=== PATIENT | male | born 1975 | race Two or more races ===

== ENCOUNTER 2024-05-29 21:06 | Emergency (ER) | payer MEDICAID, SELFPAY ==
[2024-05-29 21:08] VITALS: BMI 28.8
[2024-05-29 21:23] VITALS: BP 142/87; PULSE 73; RESP 18; TEMP 37; O2SAT 96
--- NOTE | 2024-05-29 21:37 | PD.EDEAR ---
ED Ear RME/HPI General Chief complaint: Ear Stated complaint: EARS RINGING X2-3 YEARS AND UNABLE TO SLEEP Time Seen by Provider: 05/29/24 21:13 Arrival date/time: 05/29/24 21:06 This is a 48-year-old male that comes in with complaints of tinnitus for the past 2 to 3 years. Patient patient states he is never seen his primary provider for this problem. Patient denies any ear pain. Tinnitus is not associated with any headaches dizziness or any other symptoms. Patient states he has been going under a lot of stress recently. Patient reports that his son is doing drugs and lives under a bridge currently. Per patient father he is trying to get his son help and because of this he has had trouble sleeping at night. Explained to patient at length that he needs to speak to his primary provider about this problem. Related Data Previous Rx's ?Medication ?Instructions ?Recorded hydroxyzine HCl 25 mg tablet 25 mg PO .qhs PRN anxiety #10 tabs 05/29/24 Allergies Allergy/AdvReac Type Severity Reaction Status Date / Time No Known Allergies Allergy Verified 09/17/23 19:46 Review of Systems Review of Systems Systems Reviewed: All systems reviewed, normal except as documented Past Medical History Past Medical History Comments PMH COMMENT: denies ED Exam General General appearance: Present alert and in no apparent distress Head Head exam: Present atraumatic Eye Eye exam: Present normal appearance, PERRL and EOMI ENT ENT exam: Present normal exam, normal oropharynx and mucous membranes moist Neck Neck exam: Present normal inspection, full ROM and trachea midline Chest Chest inspection: Present normal inspection and symmetric chest wall rise Respiratory Respiratory exam: Present normal lung sounds bilaterally Cardiovascular Cardiovascular exam: Present regular rate, normal rhythm and normal heart sounds Abdominal Exam Abdominal exam: Present soft Extremities Exam Extremities exam: Present normal inspection and full ROM Back Exam Back exam: Present normal inspection and full ROM Neurological Exam Neurological exam: Present alert, oriented X3 and CN II-XII intact Psychiatric Psychiatric exam: Present normal affect and normal mood Skin Skin exam: Present warm, dry, intact and normal color Course Quality Measures none Orders Category Date Time Status LORazepam [Ativan] Med 05/29/24 21:38 Discontinued 1 mg PO X1 ONE Vital Signs Vital signs: Vital Signs Temperature 98.6 F 05/29/24 21:23 Pulse Rate 73 05/29/24 21:23 Respiratory Rate 18 05/29/24 21:23 Blood Pressure 142/87 H 05/29/24 21:23 Pulse Oximetry (%) 96 05/29/24 21:23 Oxygen Delivery Method Room Air 05/29/24 21:23 Ear MDM Narrative MDM Narrative:: This is a 48-year-old male that comes in with complaints of tinnitus for the past 2 to 3 years. Patient patient states he is never seen his primary provider for this problem. Patient denies any ear pain. Tinnitus is not associated with any headaches dizziness or any other symptoms. Patient states he has been going under a lot of stress recently. Patient reports that his son is doing drugs and lives [place] a bridge currently. Per patient father he is trying to get his son help and because of this he has had trouble sleeping at night. Explained to patient at length that he needs to speak to his primary provider about this problem. Patient given a dose of Ativan for anxiety. Patient told to follow-up with his primary provider in 1 to 2 days. Come back to the emergency room if symptoms change or worsen. Patient data External records reviewed:: [facility] previous records Clinical information provided by:: patient Social determinants that could affect healthcare access:: none Patient has the following chronic illnesses:: None How is presenting disease/condition affected by chronic disease/condition?: no chronic disease Evaluation data The following diagnostics were reviewed and interpreted by me:: other (specify) (None) Lab and/or radiology exams considered but not ordered:: None Interpretation Summary: See note Medications / Prescriptions Medications or Prescriptions considered but not ordered:: None Medication administrations:: Medication Administration History Discontinued Medications Lorazepam (Lorazepam 0.5 Mg Tablet) 1 mg PO X1 ONE Stop: 05/29/24 21:39 Last Admin: 05/29/24 21:48 Dose: 1 mg Documented By: KF see [facility] Consultations Consultation(s) initiated? (list below): No Diagnosis Ear Differential Diagnosis: otitis externa, otitis media, ruptured TM and cerumen impaction Most likely diagnosis given after review of the tests above:: anxiety Admission Indicated Admission indicated?: not indicated Admission Request Was there a request for admission?: No Disposition Plan Disposition Plan: Discharge Discharge Attestation Discharge Attestation: The patient and all family members were given an opportunity to ask questions and understood the discharge instructions. Discharge instructions specifically effects, indications for sooner follow up or return to the emergency department, and the expected course of current diagnosis. Patient condition: Stable Discharge Plan Plan Patient Disposition: HOME (Self Care) Patient condition on transfer: Stable Prescriptions/Referrals Prescriptions/Med Rec: New hydroxyzine HCl 25 mg tablet 25 mg PO .qhs PRN (Reason: anxiety ) Qty: 10 0RF Problem List Clinical Impression: Anxiety Patient/Caregiver Discharge Instructions Discharge Activity: activity as tolerated Education Materials: ED Anxiety Reaction Additional Instructions: Follow-up with primary provider in 1 to 2 days. Come back to the emergency room if symptoms change or worsen. Print Language: Portuguese Stand Alone Forms: Lisbeth Award Info., Patient Portal Info Letter PA/GUN WELDER Supervising Physician PA/STEF Supervising Physician: dick
[2024-05-29] MEDS: LORazepam 0.5 MG TABLET 1 MG PO (21:48)
== END 2024-05-29 22:01 | disposition home or self-care (01) ==
LOC: SERX 22:06
PROVIDERS: Emergency Provider Emergency Medicine
DX: F41.9 Anxiety disorder, unspecified (principal)
CPT/HCPCS: 99282; A9270

== ENCOUNTER 2024-06-26 10:16 | Emergency (ER) | payer MEDICAID, SELFPAY ==
[2024-06-26 10:16] VITALS: BMI 28.1
[2024-06-26 10:55] VITALS: BP 125/78; PULSE 76; RESP 18; TEMP 37.1; O2SAT 97
--- NOTE | 2024-06-26 10:56 | XR_ITS ---
Examination: PA lateral chest 2 views Technique: Upright PA lateral chest 2 views Exam date and time: June 26, 2024 11:12 AM Comparison September 17, 2023 Indications: Shortness of breath coughing beginning 2 days ago. Findings: Normal heart size Accentuation basilar bronchovascular markings No lobar pneumonia Impression: Basilar bronchitis pattern
--- NOTE | 2024-06-26 13:25 | PD.EDURI ---
Upper Respiratory Inf. RME/HPI General Chief Complaint: Flu Like Symptoms Stated Complaint: FLU SYMPTOMS X4 DAYS Time Seen by Provider: 06/26/24 10:27 Arrival date/time: 06/26/24 10:16 48-year-old male presents emergency department today complaints of flulike symptoms x 4 days patient reports generalized bodyaches cough congestion runny nose Limitations: no limitations Related Data Previous Rx's ?Medication ?Instructions ?Recorded hydroxyzine HCl 25 mg tablet 25 mg PO .qhs PRN anxiety #10 tabs 05/29/24 albuterol sulfate 90 mcg/actuation 2 puff inhalation Q6H PRN 06/26/24 aerosol inhaler (Ventolin HFA) shortness of breath or wheezing #8.5 grams ibuprofen 800 mg tablet 800 mg PO TID PRN pain #30 tabs 06/26/24 prednisone 10 mg tablet 30 mg (3 x 10 mg) PO BID 3 days 06/26/24 #18 tabs Allergies Allergy/AdvReac Type Severity Reaction Status Date / Time No Known Allergies Allergy Verified 06/26/24 10:16 Review of Systems Review of Systems Systems Reviewed: All systems reviewed, normal except as documented Constitutional Constitutional: Reports system reviewed and no additional complaints, except as documented, Denies fever(s) and Reports headache(s) Eyes Eyes: Reports system reviewed and no additional complaints, except as documented and Denies blurry vision ENT Ears, Nose, Mouth, and Throat: Reports system reviewed and no additional complaints, except as documented, Reports headache(s), Reports nasal congestion and Reports nasal discharge Cardiovascular Cardiovascular: Reports system reviewed and no additional complaints, except as documented, Denies chest pain and Denies dyspnea Respiratory Respiratory: Reports system reviewed and no additional complaints, except as documented, Denies chest congestion, Denies cough and Denies dyspnea Gastrointestinal Gastrointestinal: Reports system reviewed and no additional complaints, except as documented and Denies abdominal pain Integumentary/Breasts Skin/Breast: Reports system reviewed and no additional complaints, except as documented and Denies rash Neurologic Neurologic: Reports system reviewed and no additional complaints, except as documented, Reports as per HPI and Reports headache(s) Past Medical History Social History SMOKING STATUS: Never smoker ED Exam General Limitations: Present no limitations General appearance: Present alert and in no apparent distress Head Head exam: Present atraumatic, normocephalic and normal inspection Eye Eye exam: Present normal appearance, PERRL and EOMI; Absent conjunctival injection ENT ENT exam: Present normal exam, normal oropharynx and mucous membranes moist Neck Neck exam: Present normal inspection, full ROM and trachea midline Chest Chest inspection: Present normal inspection and symmetric chest wall rise Respiratory Respiratory exam: Present normal lung sounds bilaterally; Absent respiratory distress, wheezes or stridor Cardiovascular Cardiovascular exam: Present regular rate, normal rhythm and normal heart sounds Abdominal Exam Abdominal exam: Present soft and normal bowel sounds; Absent distention or tenderness Extremities Exam Extremities exam: Present normal inspection and full ROM Back Exam Back exam: Present normal inspection and full ROM Neurological Exam Neurological exam: Present alert, oriented X3, CN II-XII intact, normal gait and reflexes normal; Absent motor sensory deficit Psychiatric Psychiatric exam: Present normal affect and normal mood Skin Skin exam: Present warm, dry, intact and normal color Course Quality Measures none Orders Category Date Time Status Bedside Influenza A&B Antigen Test NOW Care 06/26/24 10:56 Completed XR chest 2V Stat Exams 06/26/24 10:56 Completed Vital Signs Vital signs: Vital Signs Temperature 98.7 F 06/26/24 10:55 Pulse Rate 76 06/26/24 10:55 Respiratory Rate 18 06/26/24 10:55 Blood Pressure 125/78 06/26/24 10:55 Pulse Oximetry (%) 97 06/26/24 10:55 Oxygen Delivery Method Room Air 06/26/24 10:55 O2 saturation 97% room air within normal limits Upper Respiratory Infection MDM Narrative MDM Narrative:: 48-year-old male presents emergency department today complaints of flulike symptoms x 4 days patient reports generalized bodyaches cough congestion runny nose On exam patient well-appearing patient's not appear ill or toxic and in no acute distress Lungs are clear to auscultation Imaging obtained no acute emergent findings noted patient checked for flu which is negative Symptoms consistent with URI patient will be treated symptomatically Patient discharged home in no distress to follow-up with primary care doctor in the next 24 to 48 hours and for any worsening symptoms to return to the ER immediately Patient data External records reviewed:: [facility] previous records Clinical information provided by:: patient Social determinants that could affect healthcare access:: none Patient has the following chronic illnesses:: None How is presenting disease/condition affected by chronic disease/condition?: no chronic disease Evaluation data The following diagnostics were reviewed and interpreted by me:: lab results and radiology exam(s) Lab and/or radiology exams considered but not ordered:: Labs radiology obtain Interpretation Summary: By me Medications / Prescriptions Medications or Prescriptions considered but not ordered:: Given Medication administrations:: Given Consultations Consultation(s) initiated? (list below): No Diagnosis Upper Respiratory Differential Diagnosis: upper respiratory infection, sinusitis and bronchitis Most likely diagnosis given after review of the tests above:: URI Admission Indicated Admission indicated?: not indicated Admission Request Was there a request for admission?: No Disposition Plan Disposition Plan: Discharge Discharge Attestation Discharge Attestation: The patient and all family members were given an opportunity to ask questions and understood the discharge instructions. Discharge instructions specifically effects, indications for sooner follow up or return to the emergency department, and the expected course of current diagnosis. Patient condition: Stable Discharge Plan Plan Patient Disposition: HOME (Self Care) Disposition Comment: Stable Prescriptions/Referrals Prescriptions/Med Rec: New prednisone 10 mg tablet 30 mg PO BID 3 Days Qty: 18 0RF ibuprofen 800 mg tablet 800 mg PO TID PRN (Reason: pain) Qty: 30 0RF albuterol sulfate [Ventolin HFA] 90 mcg/actuation HFA aerosol inhaler 2 puff inhalation Q6H PRN (Reason: shortness of breath or wheezing) Qty: 8.5 0RF No Action hydroxyzine HCl 25 mg tablet 25 mg PO .qhs PRN (Reason: anxiety ) Qty: 10 0RF Referrals: No Primary/Family,Physician [Primary Care Provider] - In 1 week Problem List Clinical Impression: Bronchitis Patient/Caregiver Discharge Instructions Education Materials: ED Upper Resp Infec Abx Tx Additional Instructions: Please follow up with your primary care doctor in the next 24-48hrs for any worsening symptoms return here immediately Print Language: Divehi Stand Alone Forms: Lisbeth Award Info., Work/School Release, Patient Portal Info Letter PA/ROLLER VARNISHER Supervising Physician PA/STEF Supervising Physician: Dr Arreguin
== END 2024-06-26 14:13 | disposition home or self-care (01) ==
PROVIDERS: Emergency Provider Emergency Medicine
DX: J40 Bronchitis, not specified as acute or chronic (principal)
CPT/HCPCS: 71046; 87400; 99283

== ENCOUNTER 2024-09-19 15:00 | Emergency (ER) | payer SELFPAY ==
[2024-09-19 15:02] VITALS: BMI 26.6
[2024-09-19 15:22] VITALS: BP 126/86; PULSE 73; RESP 18; TEMP 36.9; O2SAT 96
--- NOTE | 2024-09-19 15:39 | EDNOTE_ITS ---
ED Eye Problem RME/HPI General Chief complaint: Eye Problems Stated complaint: L EYE INJURY AT WORK Time Seen by Provider: 09/19/24 15:39 Source: patient Arrival date/time: 09/19/24 15:00 48-year-old male presents to the ED with complaint of left eye pain after difficult Vidal he calls scratch fell into the left eye while trimming. This occurred at 0600 this morning. Mode of arrival: ambulatory Limitations: no limitations RME / HPI chief complaint: eye pain, eye redness and eye injury Onset (ago): hour(s) Related Data Previous Rx's ?Medication ?Instructions ?Recorded hydroxyzine HCl 25 mg tablet 25 mg PO .qhs PRN anxiety #10 tabs 05/29/24 albuterol sulfate 90 mcg/actuation 2 puff inhalation Q 6H PRN 06/26/24 aerosol inhaler (Ventolin HFA) shortness of breath or wheezing #8.5 grams ibuprofen 800 mg tablet 800 mg PO TID PRN pain #30 t abs 06/26/24 Allergies Allergy/AdvReac Type Severity Reaction Status Date / Time No Known Allergies Allergy Verified 06/26/24 10:16 Review of Systems Review of Systems Systems Reviewed: All systems reviewed, normal except as documented Eyes Eyes: Reports system reviewed and no additional complaints, except as documented, Reports blurry vision, Reports irritation and Reports eye pain ENT Ears, Nose, Mouth, and Throat: Reports system reviewed and no additional complaints, except as documented and Reports as per HPI Gastrointestinal Gastrointestinal: Reports system reviewed and no additional complaints, except as documented Musculoskeletal Musculoskeletal: Reports system reviewed and no additional complaints, except as documented and Reports as per HPI Neurologic Neurologic: Reports system reviewed and no additional complaints, except as documented and Reports as per HPI Past Medical History Social History SMOKING STATUS: Never smoker ED Exam General Limitations: Present no limitations General appearance: Present alert and in no apparent distress Head Head exam: Present atraumatic Eye Eye exam: Present PERRL, EOMI, conjunctival injection and other ENT ENT exam: Present normal exam, normal oropharynx and mucous membranes moist Neck Neck exam: Present normal inspection, full ROM and trachea midline Chest Chest inspection: Present normal inspection and symmetric chest wall rise Respiratory Respiratory exam: Present normal lung sounds bilaterally Cardiovascular Cardiovascular exam: Present regular rate, normal rhythm and normal heart sounds Abdominal Exam Abdominal exam: Present soft and normal bowel sounds Extremities Exam Extremities exam: Present normal inspection and full ROM Back Exam Back exam: Present normal inspection and full ROM Neurological Exam Neurological exam: Present alert, oriented X3 and CN II-XII intact Psychiatric Psychiatric exam: Present normal affect and normal mood Skin Skin exam: Present warm, dry, intact and normal color Course Quality Measures none Vital Signs Vital signs: Vital Signs Temperature 98.4 F 09/19/24 15:22 Pulse Rate 73 09/19/24 15:22 Respiratory Rate 18 09/19/24 15:22 Blood Pressure 126/86 H 09/19/24 15:22 Pulse Oximetry (%) 96 09/19/24 15:22 Oxygen Delivery Method Room Air 09/19/24 15:22 O2 sat room air 96% Procedures -ED Jimenez Lamp Exam Left eye: Flourescein uptake:: Yes Jimenez Lamp Findings: Corneal abrasion (The left eye has a very fine coreal abrasion in the form of eye rubbing. The abrasion is at the 2 o'clock position.) Eye MDM Narrative MDM Narrative:: Patient will have a with exam examination of the left. A very fine corneal abrasion in the appearance of eye rubbing with discovered. No apparent foreign body seen in the upper and lower eyelids. Discharged home in no apparent distress with a course of the left hand. He will also have a tetanus and a Tdap. Patient data External records reviewed:: Other (specify) Clinical information provided by:: patient Social determinants that could affect healthcare access:: none Patient has the following chronic illnesses:: NA How is presenting disease/condition affected by chronic disease/condition?: exacerbated by (F/B eye rubbing) Evaluation data Lab and/or radiology exams considered but not ordered:: NA Interpretation Summary: NA Medications / Prescriptions Medications or Prescriptions considered but not ordered:: NA Medication administrations:: NA Consultations Consultation(s) initiated? (list below): No Diagnosis Eye Problem Differential Diagnosis: corneal abrasion, conjunctivitis, acute iritis, subconjunctival hemorrhage and corneal ulcer Most likely diagnosis given after review of the tests above:: Corneal abrasion Admission Indicated Admission indicated?: not indicated Admission Request Was there a request for admission?: No Disposition Plan Disposition Plan: Discharge Discharge Attestation Discharge Attestation: The patient and all family members were given an opportunity to ask questions and understood the discharge instructions. Discharge instructions specifically effects, indications for sooner follow up or return to the emergency department, and the expected course of current diagnosis. Patient condition: Stable Discharge Plan Plan Patient Disposition: HOME (Self Care) Disposition Comment: Patient discharged in apparent distress Prescriptions/Referrals Prescriptions/Med Rec: No Action hydroxyzine HCl 25 mg tablet 25 mg PO .qhs PRN (Reason: anxiety ) Qty: 10 0RF ibuprofen 800 mg tablet 800 mg PO TID PRN (Reason: pain) Qty: 30 0RF albuterol sulfate [Ventolin HFA] 90 mcg/actuation HFA aerosol inhaler 2 puff inhalation Q6H PRN (Reason: shortness of breath or wheezing) Qty: 8.5 0RF Problem List Clinical Impression: Corneal abrasion Patient/Caregiver Discharge Instructions Print Language: Cymraes GRISELDA/STEF Supervising Physician GRISELDA/STEF Supervising Physician: Haley
[2024-09-19] MEDS: TETRACAINE PF OP SOL 0.5% 4 ML DRPETTE 1 DROP LEFT EYE (15:49)
[2024-09-19] MEDS: FLUORESCEIN SOD 1 MG STRP LEFT EYE (15:49)
[2024-09-19] MEDS: DIPHTH,PERTUSS(ACELL),TET VAC 0.5 ML SYR- ADULT IMi (16:05)
== END 2024-09-19 16:18 | disposition home or self-care (01) ==
PROVIDERS: Emergency Provider Emergency Medicine
DX: S05.02XA Injury of conjunctiva and corneal abrasion without foreign body, left eye, initial encounter (principal); X58.XXXA Exposure to other specified factors, initial encounter; Z23 Encounter for immunization
CPT/HCPCS: 90471; 90715; 99283

== ENCOUNTER 2024-09-29 15:42 | Emergency (ER) | payer OTHER, SELFPAY ==
[2024-09-29 16:22] VITALS: BP 121/76; PULSE 89; RESP 18; TEMP 37.1; O2SAT 99; BMI 28.7
[2024-09-29] MEDS: TETRACAINE PF OP SOL 0.5% 4 ML DRPETTE 1 DROP LEFT EYE (16:55)
[2024-09-29] MEDS: FLUORESCEIN SOD 1 MG STRP LEFT EYE (16:55)
--- NOTE | 2024-09-29 17:22 | EDNOTE_ITS ---
ED Eye Problem RME/HPI General Chief complaint: Eye Problems Stated complaint: LEFT EYE INJURY 09/19/24 AT WORK Time Seen by Provider: 09/29/24 16:16 Source: patient Arrival date/time: 09/29/24 15:42 48-year-old male with no known medical history presents to the emergency room with a chief complaint of irritation and pain to his left eye after an injury that occurred at work on 09/19/2024 Mode of arrival: ambulatory Limitations: no limitations Related Data Previous Rx's ?Medication ?Instructions ?Recorded hydroxyzine HCl 25 mg tablet 25 mg PO .qhs PRN anxiety #10 tabs 05/29/24 albuterol sulfate 90 mcg/actuation 2 puff inhalation Q 6H PRN 06/26/24 aerosol inhaler (Ventolin HFA) shortness of breath or wheezing #8.5 grams ibuprofen 800 mg tablet 800 mg PO TID PRN pain #30 t abs 06/26/24 ibuprofen 800 mg tablet 800 mg PO Q8H PRN pain #30 t abs 09/19/24 sulfacetamide sodium 10 % eye drops 2 drp ophthalmic ( eye) Q4H #15 mL 09/19/24 ciprofloxacin HCl 0.3 % eye drops See Rx Instructions ophthalmic 09/29/24 (eye) .COMPLEX #5 mL Allergies Allergy/AdvReac Type Severity Reaction Status Date / Time No Known Allergies Allergy Verified 09/29/24 15:46 Review of Systems Review of Systems Systems Reviewed: All systems reviewed, normal except as documented Constitutional Constitutional: Reports system reviewed and no additional complaints, except as documented, Denies fatigue, Denies fever(s), Denies headache(s) and Denies weakness Eyes Eyes: Reports system reviewed and no additional complaints, except as documented, Denies blurry vision, Denies change in vision, Denies eye discharge, Denies dry eyes, Reports irritation and Reports eye pain ENT Ears, Nose, Mouth, and Throat: Reports system reviewed and no additional complaints, except as documented, Denies otalgia, Denies headache(s), Denies nasal congestion, Denies throat swelling and Denies vertigo Cardiovascular Cardiovascular: Reports system reviewed and no additional complaints, except as documented, Denies chest pain, Denies dyspnea and Denies dyspnea on exertion Respiratory Respiratory: Reports system reviewed and no additional complaints, except as documented, Denies chest congestion, Denies cough, Denies dyspnea, Denies dyspnea on exertion and Denies wheezing Gastrointestinal Gastrointestinal: Reports system reviewed and no additional complaints, except as documented, Denies abdominal pain, Denies cramping, Denies nausea and Denies vomiting Genitourinary Genitourinary: Reports system reviewed and no additional complaints, except as documented, Denies dysuria and Denies hematuria Musculoskeletal Musculoskeletal: Reports system reviewed and no additional complaints, except as documented and Denies back pain Integumentary/Breasts Skin/Breast: Reports system reviewed and no additional complaints, except as documented and Denies wounds Neurologic Neurologic: Reports system reviewed and no additional complaints, except as documented, Denies confusion, Denies headache(s), Denies lack of coordination, Denies vertigo and Denies weakness Psychiatric Psychiatric: Reports system reviewed and no additional complaints, except as documented, Denies anxiety, Denies confusion, Denies depression, Denies paranoia, Denies suicidal ideation and Denies tactile hallucinations Endocrine Endocrine: Reports system reviewed and no additional complaints, except as documented and Denies fatigue Hematologic/Lymphatic Hematologic/Lymphatic: Reports system reviewed and no additional complaints, except as documented and Denies lymphadenopathy Allergic/Immunologic Allergic/Immunologic: Reports system reviewed and no additional complaints, except as documented, Denies throat swelling, Denies urticaria and Denies wheezing Past Medical History Social History SMOKING STATUS: Never smoker ED Exam General Limitations: Present no limitations General appearance: Present alert and in no apparent distress Head Head exam: Present atraumatic, normocephalic and normal inspection Eye Eye exam: Present normal appearance, PERRL and EOMI Expanded Eye Exam Pupils: Bilateral: regular, round and reactive ENT ENT exam: Present normal exam, normal oropharynx and mucous membranes moist Neck Neck exam: Present normal inspection, full ROM and trachea midline Chest Chest inspection: Present normal inspection and symmetric chest wall rise Respiratory Respiratory exam: Present normal lung sounds bilaterally Cardiovascular Cardiovascular exam: Present regular rate, normal rhythm and normal heart sounds Abdominal Exam Abdominal exam: Present soft and normal bowel sounds Extremities Exam Extremities exam: Present normal inspection and full ROM Back Exam Back exam: Present normal inspection and full ROM Neurological Exam Neurological exam: Present alert, oriented X3 and CN II-XII intact Psychiatric Psychiatric exam: Present normal affect and normal mood Skin Skin exam: Present warm, dry, intact and normal color Course Quality Measures none Orders Category Date Time Status ED Eye Irrigation ONCE Care 09/29/24 16:30 Completed Visual Acuity X1 Care 09/29/24 16:30 Completed Jimenez Lamp to Bedside X1 Care 09/29/24 16:30 Completed Fluorescein Sodium [[id number]] Med 09/29/24 16:30 Discontinued 1 mg LEFT EYE X1 ONE TETRACAINE Op Jackelyn 0.5% [Pontocaine Op Jackelyn 0.5%] Med 09/29/24 16:30 Discontinued 1 drop LEFT EYE X1 ONE Vital Signs Vital signs: Vital Signs Temperature 98.7 F 09/29/24 16:22 Pulse Rate 89 09/29/24 16:22 Respiratory Rate 18 09/29/24 16:22 Blood Pressure 121/76 09/29/24 16:22 Pulse Oximetry (%) 99 09/29/24 16:22 Oxygen Delivery Method Room Air 09/29/24 16:22 Procedures -ED Jimenez Lamp Exam Left eye: Flourescein uptake:: Yes Jimenez Lamp Findings: Corneal abrasion Eye MDM Narrative MDM Narrative:: 48-year-old male with no known medical history presents to the emergency room with a chief complaint of irritation and pain to his left eye after an injury that occurred at work on 09/19/2024 Patient is hemodynamically stable. Physical examination shows some small debris in the eye. The eye was numbed up using tetracaine and the dye was used to visualize the eye with the Jimenez lamp. There was fluorescein uptake to the left side of the pupil. The small debris was removed and eye was irrigated. The Jimenez lamp examination showed a corneal abrasion. There is no corneal ulceration at this time there is a negative Capo sign no rust ring and no hyphema. Pupils are PERRLA EOMs are intact antibiotics are sent to the patient's pharmacy. 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 Patient was discharged and educated to follow-up with primary care provider in the next 24 to 48 hours and return to the emergency room for any evidence of worsening signs or symptoms Patient data External records reviewed:: [facility] previous records Clinical information provided by:: patient Social determinants that could affect healthcare access:: none Patient has the following chronic illnesses:: No chronic illness How is presenting disease/condition affected by chronic disease/condition?: no chronic disease Evaluation data The following diagnostics were reviewed and interpreted by me:: lab results and radiology exam(s) Lab and/or radiology exams considered but not ordered:: Labs and radiology exams considered and ordered Interpretation Summary: N/A Medications / Prescriptions Medications or Prescriptions considered but not ordered:: Medication given Medication administrations:: Medication Administration History Discontinued Medications Fluorescein Sodium (Fluorescein Sod 1 Mg Strp) 1 mg LEFT EYE X1 ONE Stop: 09/29/24 16:31 Last Admin: 09/29/24 16:55 Dose: 1 mg Documented By: Tetracaine HCl (Tetracaine Pf Op Jackelyn 0.5% 4 Ml Drpette) 1 drop LEFT EYE X1 ONE Stop: 09/29/24 16:31 Last Admin: 09/29/24 16:55 Dose: 1 drop Documented By: Medication given Consultations Consultation(s) initiated? (list below): No Diagnosis Eye Problem Differential Diagnosis: corneal abrasion, conjunctivitis, hyphema and corneal ulcer Most likely diagnosis given after review of the tests above:: Corneal abrasion Admission Indicated Admission indicated?: not indicated Admission Request Was there a request for admission?: No Disposition Plan Disposition Plan: Discharge Discharge Attestation Discharge Attestation: The patient and all family members were given an opportunity to ask questions and understood the discharge instructions. Discharge instructions specifically effects, indications for sooner follow up or return to the emergency department, and the expected course of current diagnosis. Patient condition: Stable Discharge Plan Plan Patient Disposition: HOME (Self Care) Discharge Disposition comment: Stable Prescriptions/Referrals Prescriptions/Med Rec: New ciprofloxacin HCl 0.3 % drops See Rx Instructions .ROUTE .COMPLEX Qty: 5 0RF Rx Instructions: put 1-2 drps in affected eye(s) every 2hr up to 8 times/day x2days; then 4 times/day x5days No Action hydroxyzine HCl 25 mg tablet 25 mg PO .qhs PRN (Reason: anxiety ) Qty: 10 0RF ibuprofen 800 mg tablet 800 mg PO TID PRN (Reason: pain) Qty: 30 0RF albuterol sulfate [Ventolin HFA] 90 mcg/actuation HFA aerosol inhaler 2 puff inhalation Q6H PRN (Reason: shortness of breath or wheezing) Qty: 8.5 0RF sulfacetamide sodium 10 % drops 2 drp ophthalmic (eye) Q4H Qty: 15 0RF ibuprofen 800 mg tablet 800 mg PO Q8H PRN (Reason: pain) Qty: 30 0RF Referrals: No Primary/Family,Physician [Primary Care Provider] - In 1 week Problem List Clinical Impression: Corneal abrasion Patient/Caregiver Discharge Instructions Education Materials: ED Corneal Abrasion Additional Instructions: Por favor, consulte con damon m?dico de cabecera en las pr?ximas 24 a 48 horas. Se extrajo un residuo del elio. Se realiz? un examen con l?mpara y se observa raiza abrasi?n corneal. Se enviaron gotas antibi?gideon a damon farmacia; rec?jalas y t?melas seg?n lo indicado. Si observa alg?n empeoramiento de los signos o s?ntomas, consulte con damon m?dico de cabecera para que lo derive a un oftalm?logo. Si observa alg?n empeoramiento de los signos o s?ntomas, acuda a urgencias de inmediato. Print Language: [place] Stand Alone Forms: Lisbeth Award Info., Patient Portal Info Letter PA/[employer] Supervising Physician PA/[employer] Supervising Physician: Dr. Man
== END 2024-09-29 17:55 | disposition home or self-care (01) ==
PROVIDERS: Emergency Provider Family Medicine
DX: S05.02XA Injury of conjunctiva and corneal abrasion without foreign body, left eye, initial encounter (principal); X58.XXXA Exposure to other specified factors, initial encounter; Y99.0 Civilian activity done for income or pay
CPT/HCPCS: 99283